=== PATIENT | female | born 2000 | race Caucasian/White ===

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

== ENCOUNTER 2023-02-24 11:27 | Outpatient (CLI) | payer OTHER, SELFPAY ==
[2023-02-24 14:41] LABS: PCR FLU A Negative PCR FLU A (Negative); PCR FLU B Negative PCR FLU B (Negative); SARS PCR* Negative SARS-CoV-2 (Negative)
== END 2023-02-24 11:28 | disposition home or self-care (01) ==
PROVIDERS: PCP Family Medicine; Visit Provider Family Medicine
DX: R53.83 Other fatigue (principal); U09.9 Post COVID-19 condition, unspecified; M54.9 Dorsalgia, unspecified
CPT/HCPCS: 80053; 82550; 82728; 83540; 84443; 85025; 86140; 87631

== ENCOUNTER 2024-09-07 09:36 | Outpatient (CLI) | payer OTHER, SELFPAY | END 2024-09-07 09:37 | disposition home or self-care (01) | LOC: NFLDREF 09-11 06:10 | PROVIDERS: PCP Family Medicine; Referring Provider Family Medicine; Visit Provider Family Medicine | DX: Z11.1 Encounter for screening for respiratory tuberculosis (principal) | CPT/HCPCS: 86480 ==